=== PATIENT | male | born 1965 | race Caucasian/White ===

== ENCOUNTER 2016-11-29 19:49 | Inpatient (IN) | payer MEDICARE, OTHER ==
[~2016-11-29] VITALS: Ht 190.5 cm; Wt 90.7 kg
[2016-11-30 06:48] LABS: RED BLOOD COUNT 4.61 M/UL (4.20-5.50); WHITE BLOOD COUNT 3.9 K/UL (4.5-11.0)
[2016-11-30 07:12] LABS: BUN/CREATININE RATIO 11 (0-10)
[2016-11-30] MEDS ORDERED: KEFLEX500 MG PO (15:43)
[2016-11-30] MEDS ORDERED: PROTONIX40 MG PO (15:44)
[2016-11-30] MEDS ORDERED: TYLENOL 325MG325 MG PO (15:45)
== END 2016-11-30 16:19 | disposition home or self-care (01) | DRG 603 ==
LOC: MED SURG 4 23:50
PROVIDERS: Internal Medicine; ADMIT Internal Medicine Infectious Disease
DX: L03.116 Cellulitis of left lower limb (principal); D61.818 Other pancytopenia; M25.572 Pain in left ankle and joints of left foot; M25.472 Effusion, left ankle; R74.0 Nonspecific elevation of levels of transaminase and lactic acid dehydrogenase [LDH]; F19.10 Other psychoactive substance abuse, uncomplicated; G89.29 Other chronic pain; M54.9 Dorsalgia, unspecified; F32.9 Major depressive disorder, single episode, unspecified; I10 Essential (primary) hypertension; F17.210 Nicotine dependence, cigarettes, uncomplicated
CPT/HCPCS: ECHO; 36415; 80053; 80074; 80307; 83735; 84100; 85027; 87040; 87390; 93306; J0295; J1650; J7050